=== PATIENT | male | born 1970 | race Caucasian/White ===

== ENCOUNTER 2017-07-09 18:59 | Emergency (ER) | payer MEDICAID, MEDICARE ==
[~2017-07-09] VITALS: Ht 180.3 cm; Wt 67.0 kg
[2017-07-09 21:02] VITALS: BP 134/55
== END 2017-07-09 23:10 | disposition left against medical advice (07) ==
LOC: ER 18:59
DX: M79.605 Pain in left leg (principal); Z53.21 Procedure and treatment not carried out due to patient leaving prior to being seen by health care provider

== ENCOUNTER 2017-10-09 08:36 | Emergency (ER) | payer MEDICARE ==
[~2017-10-09] VITALS: Ht 180.3 cm; Wt 66.0 kg
[2017-10-09 10:09] VITALS: BP 121/71
== END 2017-10-09 10:10 | disposition home or self-care (01) ==
LOC: ER 08:36
DX: G89.29 Other chronic pain (principal); M25.572 Pain in left ankle and joints of left foot; M25.562 Pain in left knee; F17.200 Nicotine dependence, unspecified, uncomplicated; R20.0 Anesthesia of skin
CPT/HCPCS: 73562; 73610; 99284